=== PATIENT | female | born 1950 | race Native Hawaiian/Other Pacific Islander ===

== ENCOUNTER → 2017-09-07 | Outpatient (CLI) | payer MEDICARE ==
--- NOTE | 2017-09-07 13:17 | MR ---
EXAMINATION TYPE: MR cervical spine wo con DATE OF EXAM: 09/07/2017 11:45 AM COMPARISON: 12/11/2015 HISTORY: Cervicalgia Multiplanar MultiSpin echo imaging of the cervical spine was performed. C2-C3: No evidence for degenerative disc disease. No disc bulge/herniation or protrusion. No Canal stenosis. Foramina are patent bilaterally. C3-C4: No evidence for degenerative disc disease. No disc bulge/herniation or protrusion. No Canal stenosis. Foramina are patent bilaterally. C4-C5: Mild disc desiccation noted. Posterocentral disc bulge is mild encapsulating spur. Mild efface ment ventral thecal sac. No evidence for sen central stenosis or cord contact. Neural foramina are patent bilaterally. C5-C6: Mild disc desiccation noted. Posterocentral disc bulge is mild encapsulating spur. Mild efface ment ventral thecal sac. No evidence for sne central stenosis or cord contact. Neural foramina are patent bilaterally. C6-C7: Borderline to mild disc desiccation. Minimal posterior disc bulge with encapsulating spur. No evidence for central stenosis or disc herniation. No foraminal encroachment. C7-T1: No evidence for degenerative disc disease. No disc bulge/herniation or protrusion. No Canal stenosis. Foramina are patent bilaterally. Cervical segments are intact. Mild scattered ventral spondylosis. There is normal alignment. Cervic al spinal cord is of normal signal. Craniovertebral junction relationships are within normal limits. IMPRESSION: 1. Stable appearance of the cervical spine with degenerative disc disease and disc endplate complex a s noted at C4-5 and C5-6. See above.
== END | disposition home or self-care (01) ==
LOC: RADMRIMAIN 10:46
PROVIDERS: ATTEND Psychiatry & Neurology Neurology
DX: M50.321 Other cervical disc degeneration at C4-C5 level (principal); M50.221 Other cervical disc displacement at C4-C5 level; M47.812 Spondylosis without myelopathy or radiculopathy, cervical region
CPT/HCPCS: 72141